=== PATIENT | male | born 1990 | race Caucasian/White ===

== ENCOUNTER 2022-09-21 22:40 | Emergency (ER) | payer OTHER, MEDICAID, SELFPAY ==
[2022-09-21 23:08] VITALS: BP 125/63; PULSE 81; RESP 16; TEMP 36.6; O2SAT 99; BMI 29.8
--- NOTE | 2022-09-21 23:12 | DI.RAD.S_ITS ---
PROCEDURE: XR ANKLE LT MIN 3V INDICATIONS: injury TECHNIQUE: 3 views of the ankle were acquired. COMPARISON: None. FINDINGS: Bones: No fractures or dislocations. Ankle mortise is normally aligned. No suspicious bony lesions. Soft tissues: There is a moderate tibiotalar joint effusion. Periarticular soft tissue swelling is demonstrated most prominent laterally. Achilles tendon appears normal. IMPRESSION: 1. No acute fracture or dislocation. Dictated by: Pato Leger M.D. on 09/22/2022 at 0:23 Approved by: Pato Leger M.D. on 09/22/2022 at 0:23
--- NOTE | 2022-09-22 04:48 | ED_ITS ---
HPI - Extremity Injury (Lower) General Chief Complaint: Extremity Injury, Lower Stated Complaint: possible broken lt ankle Time Seen by Provider: 09/22/22 04:48 Source: patient and family Mode of arrival: Wheelchair History of Present Illness HPI Narrative: 32-year-old young man with no significant medical history was jumping over a fence earlier this evening caught his left foot on the fence and did poorly and is having acute left ankle pain. Having difficulty bearing weight noticing bilateral swelling. Comes in for further evaluation he has no other complaints this evening Related Data Previous Rx's Medication Instructions Recorded meloxicam 15 mg tablet 15 mg PO DAILY #7 tabs 09/22/22 oxycodone-acetaminophen 5 mg-325 1 - 2 tab PO Q6H PRN pain #20 tabs 09/22/22 mg tablet Review of Systems Review of Systems Narrative: Pertinent positive and negative findings as per HPI Patient History Social History Smoking Status: Never smoker Smoking Status: Never smoker alcohol intake frequency: holidays/special occasions only Substance Use Type: marijuana Exam Initial Vital Signs Initial Vital Signs: Vital Signs Temperature 97.9 F 09/21/22 23:08 Pulse Rate 81 09/21/22 23:08 Respiratory Rate 16 09/21/22 23:08 Blood Pressure 125/63 09/21/22 23:08 Pulse Oximetry 99 09/21/22 23:08 Oxygen Delivery Method Room Air 09/21/22 23:08 General: Alert appropriate in no acute distress Respiratory: Able to speak in full sentences, no obvious respiratory distress Skin: No obvious rashes, warm and dry Neurologic: Grossly intact no obvious asymmetries or abnormalities Psych: appropriate insight and affect, cooperative Extremity: Left ankle with trimalleolar swelling minor ecchymosis. He is neurovascularly intact distally. There is a minor abrasion to the anterior higgins Course Orders Ordered: ED Orders 09/21/22 23:12 XR ankle LT min 3V Stat Vital Signs Vital signs: Vital Signs - 8 hr 09/21/22 23:08 Temperature 97.9 F Pulse Rate 81 Respiratory Rate 16 Blood Pressure 125/63 Pulse Oximetry 99 Oxygen Delivery Method Room Air MDM - Extremity Injury (Lower) MDM Narrative Medical decision making narrative: CC: Ankle injury acute self-limited Data collected from: patient, Differential considered: Ankle sprain, ankle fracture Exam documented above, pertinent findings include: By malleolar swelling minor ecchymosis. Imaging studies independently reviewed: X-ray shows no acute fractures Treatments: Ankle air splint is placed by nursing staff. He is evaluated post splint placement and is neurovascularly intact with pain more effectively controlled. Discussion: 32-year-old gentleman with an acute ankle injury non fractured. History of gastritis and has been told by his supervisor beam department to not use ibuprofen. No history of addiction disorders. He is given a dose of meloxicam, to Percocet, and ankle air splint is placed and he is given crutches. Will ask him to follow-up with orthopedic surgery if symptoms are not improving within a week. He will give him 5 days of meloxicam and a brief course of Percocet. Findings reviewed questions are answered and he is safe for discharge home Discharge Plan Departure Patient Disposition: Home Clinical Impression: Ankle sprain and strain Instructions: DI for Ankle Sprain Activity Restrictions/Additional Instructions: Thank you for coming in tonight You sprained your ankle, the x-rays do not show any acute fractures or dislocations Use the air splint to help with compression and stability as long as it is comfortable. The crutches as long as required. Keeping the ankle elevated, icing as needed will definitely help with pain control. Going to give you a weeks prescription for meloxicam. This is a nonsteroidal prescription, with 1 week of use it should not cause dramatic gastritis or irritate your stomach. I am also going to give you a prescription for Percocet. This is a narcotic and will cause constipation, please make sure you are using stool softener. If you find that symptoms are worsening or not significantly improved within a week, please schedule an appointment with [facility] for ER follow-up for a ankle injury. The phone number is [phone] If you find that you are getting worse or develop any new symptoms, please feel free to return to the emergency department for further evaluation. Prescriptions: New oxycodone-acetaminophen 5-325 mg tablet 1 - 2 tab PO Q6H PRN (Reason: pain) Qty: 20 0RF meloxicam 15 mg tablet 15 mg PO DAILY Qty: 7 0RF Referrals: Grisel Ramos PA-C [Primary Care Provider] - Stand Alone Forms: Patient Portal/API
[2022-09-22] MEDS: OXYCODONE/ACETAMINOPHEN 5/325 TABLET 2 TAB PO (05:03)
[2022-09-22] MEDS: MELOXICAM 7.5 MG TABLET 15 MG PO (05:06)
[2022-09-22 05:13] VITALS: BP 116/66; PULSE 78; RESP 16; O2SAT 100
== END 2022-09-22 05:14 | disposition home or self-care (01) ==
PROVIDERS: Emergency Provider Emergency Medicine; PCP Physician Assistant
DX: S93.402A Sprain of unspecified ligament of left ankle, initial encounter (principal); S96.912A Strain of unspecified muscle and tendon at ankle and foot level, left foot, initial encounter; X58.XXXA Exposure to other specified factors, initial encounter
CPT/HCPCS: 73610; 99283